=== PATIENT | female | born 1925 | race Caucasian/White ===

== ENCOUNTER 2016-11-13 16:48 | Inpatient (IN) | payer OTHER ==
[2016-11-13] MEDS ORDERED: TYLENOL PO PRN (16:54)
[2016-11-13] MEDS: NS 1,000 ML IV SCH (17:10)
[2016-11-13] MEDS: ZOFRAN IV PRN ×2 (17:22→21:56)
--- NOTE | 2016-11-13 18:45 | HISTORY AND PHYSICAL ---
CHIEF COMPLAINT: Nausea, vomiting, diarrhea. HISTORY OF PRESENT ILLNESS: An 89-year-old white female, lives in assisted living situation. Apparently overnight she began to vomit and had multiple episodes of vomiting. The facility there administered her some Pepto-Bismol which did not help. She called her son this morning and stated that she continued to have nausea and vomiting, was unable to take her medications and also began to develop diarrhea. She did not have any fever. The son transported her to the emergency room and she was admitted for observation due to age, overall frailty and inability to keep any fluids down. PAST MEDICAL HISTORY: 1. Remote history of TIA. 2. Remote history of rheumatoid arthritis. 3. Bilateral hip fractures with total hip arthroplasty repairs due to osteoporosis. 4. Ankle fracture due to osteoporosis. 5. Hypertension. 6. Urge incontinence. 7. General age related osteoporosis. ALLERGIES: HYDROXYCHLOROQUINE. FAMILY HISTORY: Noncontributory. SOCIAL HISTORY: I believe the patient lives at an assisted living facility or she has sitters. Her family is very attentive. REVIEW OF SYSTEMS: Patient denies any fever. She denies any chest pain, palpitations, shortness of breath. She denies any abdominal pain remarkably despite the nausea, vomiting and diarrhea. She has no urinary tract symptoms. She was seen in the office last week and was at baseline level of function. She is essentially wheelchair-bound due to multiple fractures and orthopedic procedures. PHYSICAL EXAMINATION: GENERAL: She is an elderly white female who is in no acute distress but is very anxious. HEENT EXAM: Oral mucosa is moderately dry but not parched. She has normal coloration. LUNGS: Clear to auscultation. CARDIOVASCULAR: Regular without appreciable murmur or gallop. ABDOMEN: Shows bowel sounds are present. She is nontender to palpation in all quadrants. There is no evidence of a surgical abdomen. EXTREMITIES: Trace edema in the lower extremities. There is slight skin tenting in the upper extremities. NEUROLOGIC: Cranial nerves are intact. The patient has a baseline slightly slurred speech which is not changed from years ago. LABORATORIES: Are pending. ASSESSMENT AND PLAN: 1. The patient will be admitted to the floor. We will gingerly administer IV fluids to keep her hydrated and she will have antiemetic therapy, anti-diarrheal therapy. We are hopeful that she can be observation admit and only be here for 2 days or less to get back on her feet. Depending on lab results, other supplements may be necessary. If any evidence of overt treatable infection surface we will address those if they come up. 2. As the patient regains her ability to eat and drink we will work her regular medications back in.
[2016-11-14 06:26] LABS: MANUAL DIFF NEEDED? NO
[2016-11-14 06:39] LABS: BASO% 0.2 % (0.0-0.8); EOS# 0.05 X1000 (0.0-0.7); EOS% 0.9 % (0.0-10.0); HEMATOCRIT 32.6 % (37.0-47.0); HEMOGLOBIN 10.3 g/dL (12.0-16.0); IMM GRAN# 0.02 X1000 (0.0-0.04); IMM GRAN% 0.3 % (0.0-0.5); LYMPH# 0.89 X1000 (1.2-3.4); LYMPH% 15.2 % (20.5-51.1); MCH 33.1 PG (27-31); MCHC 31.6 g/dL (33-37); MCV 104.8 FL (81-99); MONO# 0.81 X1000 (0.11-0.59); MONO% 13.9 % (1.7-9.3); MPV 10.1 FL (7.4-10.4); NEUT% 69.5 % (42.2-75.2); PLT 327 X1000 (130-400); RBC 3.11 XMIL (4.2-5.4)
[2016-11-14 06:52] LABS: ALBUMIN 3.2 g/dL (3.5-5.0); CALCIUM 7.5 mg/dL (8.8-10.2); POTASSIUM 4.3 mmol/L (3.5-5.1); TOTAL BILIRUBIN 0.34 mg/dL (0.20-1.00)
[2016-11-14] MEDS: NS 1,000 ML IV SCH (11:35)
[2016-11-14] MEDS ORDERED: MYCOSTATIN SUSP PO ONE (14:13)
--- NOTE | 2016-11-14 15:32 | PROGRESS NOTE ---
DATE: 11/14/2016 SUBJECTIVE: The patient had 1 other episode of vomiting last night. She feels better this morning and she states she is not nauseated. She has tried clear liquids for breakfast and did not like the broth, but did well otherwise. She has not had worsening of her diarrhea. She does have chronic intermittent diarrhea, but at the present time I thought she was acutely ill with more of her gastroenteritis. OBJECTIVE: Vital signs: Temperature 97.8, blood pressure 129/59, pulse 84, and respiratory rate 18. General: She is a well-developed, white female, in no acute distress. HEENT: She is black upon the top of her tongue which may be left over from vomiting Pepto-Bismol. She states that her tongue is sore. Lungs: Clear to auscultation. Cardiovascular: Regular. ASSESSMENT AND PLAN: We will continue to gingerly hydrate the patient. We will get her back on her home medications and hopefully advance her diet as tolerated. We are looking forward to discharge within 24-48 hours.
[2016-11-14] MEDS ORDERED: METAMUCIL PO SCH (21:00)
[2016-11-14] MEDS: MYCOSTATIN SUSP PO PRN (21:24)
[2016-11-14] MEDS: LOPRESSOR PO SCH (21:55)
[2016-11-14] MEDS: DITROPAN XL PO SCH (21:55)
[2016-11-14] MEDS: ASPIRIN PO SCH (21:55)
[2016-11-15] MEDS: NS 1,000 ML IV SCH (00:30)
[2016-11-15] MEDS: IMODIUM PO PRN (03:24)
[2016-11-15] MEDS: LOPRESSOR PO SCH ×2 (09:10→20:48)
[2016-11-15] MEDS: CITRACAL + D PO SCH ×2 (09:10→09:18)
[2016-11-15] MEDS: FOLIC ACID PO SCH (09:11)
[2016-11-15] MEDS: LASIX PO SCH (09:11)
[2016-11-15] MEDS: PRILOSEC PO SCH (09:11)
[2016-11-15] MEDS: MYCOSTATIN SUSP PO PRN (09:12)
[2016-11-15] MEDS: WELCHOL PO SCH ×2 (09:45→20:58)
--- NOTE | 2016-11-15 16:39 | PROGRESS NOTE ---
DATE: 11/15/2016 SUBJECTIVE: The patient states that she is worried that she has cancer. We discussed this at length. She had diarrhea the previous day and, although this is a chronic intermittent problem for her, both her and her son were concerned that this was an acute problem. We discussed treatment options for this as well. OBJECTIVE: Vital Signs: Temperature 97.8 degrees, blood pressure 128/50 pulse rate 74, respiratory rate 20. Lungs: Patient's lungs are clear. Cardiovascular: Regular. LABORATORIES: None. ASSESSMENT AND PLAN: 1. The patient's diet will be advanced today, and we will restart her usual home medications. I have instructed the patient and her family that she continue to progress. She would likely go home this afternoon or tomorrow morning. 2. I was informed by the case management that I needed to order physical therapy. The patient already has outpatient physical therapy scheduled for her home when she returns to assisted living. There was some mention that assisted living would not take her back unless we prove that she can walk.
[2016-11-15] MEDS: ASPIRIN PO SCH (20:48)
[2016-11-15] MEDS: DITROPAN XL PO SCH (20:48)
[2016-11-16] MEDS ORDERED: ZOFRAN ODT PO PRN (08:26)
[2016-11-16 08:58] VITALS: BP 153/57
[2016-11-16] MEDS: FOLIC ACID PO SCH (10:14)
[2016-11-16] MEDS: PRILOSEC PO SCH (10:15)
[2016-11-16] MEDS: LASIX PO SCH (10:15)
[2016-11-16] MEDS: LOPRESSOR PO SCH (10:15)
[2016-11-16] MEDS: WELCHOL PO SCH (10:16)
[2016-11-16] MEDS: IMODIUM PO PRN (10:21)
--- NOTE | 2016-11-16 11:49 | Diag Imaging Result Document ---
PROCEDURE NAME: CHEST-PORTABLE - 11/16/2016 AP PORTABLE CHEST: TIME: 1100 hours. FINDINGS: There is no evidence of acute cardiac or pulmonary disease. Compared to 04/14/2016, there has been no significant change in the appearance of the chest. IMPRESSION: No acute disease.
--- NOTE | 2016-11-17 09:38 | DISCHARGE SUMMARY ---
ADMISSION DATE: 11/15/2016 DISCHARGE DATE: 11/16/2016 DISCHARGE DIAGNOSES: 1. Acute gastroenteritis. 2. Chronic intermittent diarrhea. 3. History of osteoporosis. 4. History of transient ischemic attack. CONSULTATIONS: None. OPERATIVE PROCEDURES: None. HOSPITAL COURSE: This 89-year-old white female presented with nausea and vomiting for 2 days. She was settled down with some antiemetic therapy, as well as IV fluids. She tolerated this well. It took more than 24 hours for us to achieve good control. Her home medication regimen was restarted with the addition of Welchol for chronic diarrhea. She seemed to tolerate this well. We discussed return to home. In my attempts to discharge the patient, multiple road blocks were thrown up by the [facility] people. Despite the fact that she had come from [place] and had physical therapy already lined up, there was insistence by the certified social workers in health care and case resolution specialist that we get a physical therapy consult and that various other hoops were jumped through in order to get her discharged back to where she came from. They faxed over to my office a 6 page information sheet for me to fill out. I believe that this caused an unnecessary delay in her discharge and was not in the best interest of the patient. I put that fully on [facility]. Otherwise, the patient did not suffer any direct harm from this.
== END 2016-11-16 14:32 | DRG 392 ==
LOC: EDUNIT# → EDBD → ED 16:48 → SUPCPDRO 16:48 → EDIPHOLD 17:12 → 3N 19:52 → OBSVTOIN 11-15 13:47 → UNDODISIN 11-16 10:00
PROVIDERS: ADMIT Internal Medicine; ATTEND Internal Medicine
DX: K52.9 Noninfective gastroenteritis and colitis, unspecified (principal); M06.9 Rheumatoid arthritis, unspecified; I10 Essential (primary) hypertension; N39.41 Urge incontinence; M81.0 Age-related osteoporosis without current pathological fracture; Z99.3 Dependence on wheelchair; Z86.73 Personal history of transient ischemic attack (TIA), and cerebral infarction without residual deficits; Z79.82 Long term (current) use of aspirin; Z79.899 Other long term (current) drug therapy
CPT/HCPCS: 71010; 80053; 85025; 96374; J2405; J7030; 97530-GP

== ENCOUNTER 2017-03-01 05:59 | Inpatient (IN) ==
--- NOTE | 2017-03-01 06:32 | PROVIDER DOCUMENTATION ---
HPI-Neurological Disorder - General Chief Complaint: Stroke-Like Symptoms Stated Complaint: posible cva Time Seen by Provider: 03/01/17 06:12 Source: family, EMS Unable to obtain history due to:: altered Allergies/Adverse Reactions: Patient Allergies Allergy/AdvReac Type Severity Reaction Status Date / Time hydroxychloroquine sulfate * Allergy Mild RASH Ver[facility] 03/01/17 06:35 [facility] Home Medications: Home Medication List Medication Instructions Recorded Confirmed Last Taken Type Aspirin 81 mg PO QHS 02/02/13 03/01/17 02/28/17 History Omeprazole [Prilosec] 40 mg PO QAM 02/02/13 03/01/17 02/28/17 History Metoprolol [Lopressor] 25 mg PO Q12HR #0 tablet 02/11/13 03/01/17 02/28/17 Rx Folic Acid 1 mg PO QAM 03/18/13 03/01/17 02/28/17 History Furosemide 10 mg PO QAM 04/13/16 03/01/17 02/28/17 History Oxybutynin E.r. [Ditropan Xl] 10 mg PO QHS 04/13/16 03/01/17 02/28/17 History Calcium Citrate/Vitamin D 1 each PO DAILY #0 tablet 04/18/16 03/01/17 02/28/17 Rx [Citracal + D] Acetaminophen [Tylenol] 650 mg PO Q6H PRN PRN #0 tablet 11/16/16 03/01/17 Rx Colesevelam [Welchol] 625 mg PO BID #60 tablet 11/16/16 03/01/17 02/28/17 Rx Loperamide [Imodium] 2 mg PO PRN PRN #0 capsule 11/16/16 03/01/17 02/28/17 Rx Ondansetron Odt [Zofran Odt] 4 mg PO Q4-6H PRN PRN #10 tablet 11/16/16 03/01/17 02/28/17 Rx Nystatin Susp [Mycostatin Susp] 5 ml PO Q6-8H PRN PRN 03/01/17 03/01/17 Unknown History Ondansetron [Zofran Odt] 4 mg PO Q4-6H PRN PRN 03/01/17 03/01/17 Unknown History - History of Present Illness-Neuro Nature of Presenting Problem: 89 [facility] [place] resident brought to ER due to obvious aphasia, vomiting and confusion. She has had multiple TIA,s;' over the past 2 years and recently had extensive studies including MRI , cartid US, EKG, with no reversible disease idenified. CT here in the ER with only chronic changes of the elderly. Onset/Duration: reports: 4-6 hours ago Timing: reports: still present, changing over time, getting worse Context: reports: impaired speech Approximate time patient was last seen normal?: 02:00 Character of Altered Mental Status: reports: confused, decreased responsiveness Any recent trauma/injury?: reports: none Character of Deficits: reports: altered sensation New weakness or altered sensation location:: reports: none Cognitive Baseline: alert, oriented x3 Gait Baseline: uses a walker Review of Systems - Adult - REVIEW OF SYSTEMS - ADULT Constitutional: reports: see HPI Eyes: reports: no symptoms reported Ears, Nose, Mouth & Throat: reports: hearing loss Cardiovascular: reports: no symptoms reported Respiratory: reports: no symptoms reported Genitourinary: reports: no symptoms reported Musculoskeletal: reports: other (multiple fractures including bilateral hip replacements) Neurological: reports: see HPI Psychiatric: reports: no symptoms reported Past History - Adult - PAST MEDICAL HISTORY-ADULT Review of Records: reports: Old Records Reviewed, Nursing Assessment Review Musculoskeletal: reports: other fractures, orthopedic injury, osteoporosis - PRIOR SURGERIES/PROCEDURES Surgical/Procedure History: reports: orthopedic (extremity), joint replacement - IMMUNIZATION STATUS Childhood Immunizations: See Nurse Assessment Flu Vaccine: See Nurse Assessment - SOCIAL HISTORY Smoking: denies Substance Use: none/never Alcohol Use Frequency: never Living Situation: care facility Physical Exam- Neurological - Physical Exam-Neuro Initial Vital Signs Reviewed: Yes General Appearance: mild distress Eye Exam: bilateral eye: normal inspection HENMT: normocephalic/atraumatic, moist mucous membranes Head Injury: no evidence of injury Neck: non-tender, full range of motion, supple Respiratory: chest non-tender, lungs clear, normal breath sounds, no pleuratic chest pain, no respiratory distress Cardiovascular: normal peripheral pulses, regular rate, rhythm, no edema, no gallop, no JVD, no murmur Abdominal Exam: normal bowel sounds, non tender (easily palpable mass llq, probably stool) Progress - PLAN OF CARE/RESULTS Progress/Plan/Lab Results: Vital Signs - 8 hr 03/01/17 06:10 03/01/17 07:28 Temperature 98.3 F Pulse Rate 90 80 Respiratory Rate 24 24 Blood Pressure 214/101 209/81 O2 Sat by Pulse Oximetry 96 98 Laboratory Results - last 24 hr 03/01/17 03/01/17 03/01/17 06:20 07:06 07:06 WBC 9.89 RBC 3.56 L Hgb 11.6 L Hct 35.9 L MCV 100.8 H MCH 32.6 H MCHC 32.3 L RDW Std Deviation 17.6 H Plt Count 389 MPV 9.9 Immature Gran % (Auto) 1.0 H Neut % (Auto) 76.5 H Lymph % (Auto) 14.7 L Kay % (Auto) 5.7 Eos % (Auto) 1.8 Baso % (Auto) 0.3 Immature Gran # (Auto) 0.10 H Neut # (Auto) 7.57 H Lymph # (Auto) 1.45 Kay # (Auto) 0.56 Eos # (Auto) 0.18 Baso # (Auto) 0.03 Sodium 144 Potassium 4.1 Chloride 103 Carbon Dioxide 27 Anion Gap 14 BUN 7 L Creatinine 0.6 Estimated GFR/1.73 m2 > 60 BUN/Creatinine Ratio 12 Glucose 95 POC Glucose 75 Calculated Osmolality 285 Calcium 8.8 Total Bilirubin 0.53 AST 18 ALT 9 L Alkaline Phosphatase 80 Total Protein 6.8 Albumin 3.9 Globulin 2.9 Albumin/Globulin Ratio 1.3 Urine Source Urine Color Urine Turbidity Urine pH Ur Specific [place] Urine Protein Ur Glucose (Stick) Ur Ketones (Stick) Urine Blood Urine Nitrite Urine Bilirubin Urobilinogen Dipstick Urine Leukocytes Urine WBC (Auto) Urine RBC (Auto) U Epithel Cells (Auto) Urine Bacteria (Auto) 03/01/17 07:06 WBC RBC Hgb Hct MCV MCH MCHC RDW Std Deviation Plt Count MPV Immature Gran % (Auto) Neut % (Auto) Lymph % (Auto) Kay % (Auto) Eos % (Auto) Baso % (Auto) Immature Gran # (Auto) Neut # (Auto) Lymph # (Auto) Kay # (Auto) Eos # (Auto) Baso # (Auto) Sodium Potassium Chloride Carbon Dioxide Anion Gap BUN Creatinine Estimated GFR/1.73 m2 BUN/Creatinine Ratio Glucose POC Glucose Calculated Osmolality Calcium Total Bilirubin AST ALT Alkaline Phosphatase Total Protein Albumin Globulin Albumin/Globulin Ratio Urine Source CATH Urine Color STRAW Urine Turbidity CLEAR Urine pH 8.0 Ur Specific [place] 1.008 Urine Protein NEGATIVE Ur Glucose (Stick) NEGATIVE Ur Ketones (Stick) NEGATIVE Urine Blood NEGATIVE Urine Nitrite NEGATIVE Urine Bilirubin NEGATIVE Urobilinogen Dipstick NORMAL Urine Leukocytes NEGATIVE Urine WBC (Auto) <10 Urine RBC (Auto) <10 U Epithel Cells (Auto) <10 Urine Bacteria (Auto) NEGATIVE Orders Category Date Time Status FLAT/UPRIGHT ABD/1 VIEW CHEST [RAD] Stat Exams 03/01/17 06:34 Completed HEAD W/O CONTRAST [CT] Stat Exams 03/01/17 06:00 Taken CBC WITH ELECTRONIC DIFF [HEME] Stat Lab 03/01/17 07:06 Completed COMPREHENSIVE METABOLIC PANEL [CHEM] Stat Lab 03/01/17 07:06 Completed UA NIMS W/REFLEX CULT [URINALYSIS] Stat Lab 03/01/17 07:06 Completed 0.9% Sodium Chloride Inj [Ns] 1,000 ml Med 03/01/17 06:35 Active IV 50 mls/hr Ondansetron [Zofran] Med 03/01/17 06:36 Discontinued 4 mg IV NOW ONE EKG [EKG] Stat Ther 03/01/17 06:02 Draft Result Diagrams: 03/01/17 07:06 03/01/17 07:06 - XRAY 1 XRAY Study: Chest, Abdomen, Pelvis (No acute dz) Impression: Normal Departure - Departure Time of Disposition Decision: 08:43 DIAGNOSIS: CVA (cerebral vascular accident) Qualifiers: CVA mechanism: thrombosis Precerebral and cerebral artery: unspecified cerebral artery Qualified Code(s): I63.30 - Cerebral infarction due to thrombosis of unspecified cerebral artery Disposition: ADMITTED INPATIENT 09 Certified Medical Emergency: Emergent Condition: Poor Referrals and Follow-Ups: Tulio Rucker MD [Primary Care Provider] - - Critical Care Note This patient required my direct personal management.: Yes
[2017-03-01] MEDS ORDERED: ZOFRAN IV ONE (06:36)
[2017-03-01] MEDS: NS 1,000 ML IV SCH (06:50)
[2017-03-01 07:08] LABS: MANUAL DIFF NEEDED? NO; URINE CULTURE NEEDED? NO; URINE MICRO REVIEW NEEDED? NO; URINE SOURCE CATH
[2017-03-01 07:15] LABS: BASO% 0.3 % (0.0-0.8); EOS# 0.18 X1000 (0.0-0.7); EOS% 1.8 % (0.0-10.0); HEMATOCRIT 35.9 % (37.0-47.0); HEMOGLOBIN 11.6 g/dL (12.0-16.0); LYMPH# 1.45 X1000 (1.2-3.4); LYMPH% 14.7 % (20.5-51.1); MCH 32.6 PG (27-31); MCHC 32.3 g/dL (33-37); MCV 100.8 FL (81-99); MONO# 0.56 X1000 (0.11-0.59); MONO% 5.7 % (1.7-9.3); MPV 9.9 FL (7.4-10.4); NEUT% 76.5 % (42.2-75.2); PLT 389 X1000 (130-400); RBC 3.56 XMIL (4.2-5.4)
[2017-03-01 07:17] LABS: BILIRUBIN URINE NEGATIVE (NEGATIVE); BLOOD URINE NEGATIVE (NEGATIVE); COLOR STRAW; GLUCOSE URINE NEGATIVE (NEGATIVE); LEUKOCYTES URINE NEGATIVE (NEGATIVE); NITRITE URINE NEGATIVE (NEGATIVE); PROTEIN URINE NEGATIVE (NEGATIVE); SP GRAVITY URINE 1.008; TURBIDITY URINE CLEAR (CLEAR); UROBILINOGEN URINE NORMAL (NORMAL)
[2017-03-01 07:18] LABS: UR EPITHELIAL CELLS <10 /HPF (<10); URINE BACTERIA NEGATIVE /HPF; URINE RBC <10 /HPF (<10); URINE WBC <10 /HPF (<10)
--- NOTE | 2017-03-01 07:32 | EKG Report ---
Test Performed on : 03/01/2017 06:20:29 AM Test Reason : cva s/s Blood Pressure : / mmHG Vent. Rate : 091 BPM Atrial Rate : 091 BPM P-R Int : 192 ms QRS Dur : 078 ms QT Int : 354 ms P-R-T Axes : 035 -19 -03 degrees QTc Int : 435 ms Normal sinus rhythm. Voltage criteria for left ventricular hypertrophy Inferior infarct , age undetermined Abnormal ECG When compared with ECG of 03-FEB-2013 16:21, Inverted T waves have replaced nonspecific T wave abnormality in Inferior leads T wave inversion less evident in Lateral leads Unconfirmed Result
[2017-03-01 07:39] LABS: AGAP 14; ALBUMIN 3.9 g/dL (3.5-5.0); ALKALINE PHOSPHATASE 80 U/L (32-104); BUN 7 mg/dL (8-22); CALCIUM 8.8 mg/dL (8.8-10.2); CHLORIDE 103 mmol/L (98-107); COSMO 285; GOT 18 U/L (10-30); GPT 9 U/L (10-36); POTASSIUM 4.1 mmol/L (3.5-5.1); SODIUM 144 mmol/L (136-145); TCO2 27 mmol/L (25-35); TOTAL BILIRUBIN 0.53 mg/dL (0.20-1.00); TOTAL PROTEIN 6.8 g/dL (6.3-8.3)
--- NOTE | 2017-03-01 08:13 | Diag Imaging Result Document ---
PROCEDURE NAME: FLAT/UPRIGHT ABD/1 VIEW CHEST - 03/01/2017 FLAT AND UPRIGHT AND CHEST, THREE VIEWS: COMPARISON: Compared to 11/16/2016. FINDINGS: The lungs are well expanded. The right hemidiaphragm is elevated. No pneumonia. No free air beneath the diaphragm. No bowel obstruction. No organomegaly. There are degenerative spine changes and there has been prior orthopedic replacement of each hip. There is a large pelvic calcification consistent with a uterine fibroid. There are surgical clips in the right upper quadrant from cholecystectomy. IMPRESSION: No acute abnormality.
[2017-03-01] MEDS ORDERED: TORADOL IV PRN (09:28)
[2017-03-01] MEDS ORDERED: TYLENOL PO PRN (09:28)
[2017-03-01] MEDS ORDERED: ZOFRAN IV PRN (09:28)
--- NOTE | 2017-03-02 00:43 | HISTORY AND PHYSICAL ---
CHIEF COMPLAINT: Inability to talk. HISTORY OF PRESENT ILLNESS: This 89-year-old white female was living in an assisted living situation. The patient's son got a call this morning around 5:30 in the morning saying that she could not talk. Apparently, she had been having difficulty with making words since around 2 a.m. The patient was brought to the emergency room and found to have a severe aphasia, with no other focal neurological deficits. CT scan was normal. She was admitted for likely CVA. It is of note that the patient has suffered from multiple "TIAs" for years. Over the last year and a half or so, she has had a gradual decline in her speech function, to where she had normal mentation and word formation, but it just seemed like her vocal coordination was off. Today is somewhat different, in that she seems to be trying to make words, but it basically comes out as nonsense. She does not actually make real words. PAST MEDICAL HISTORY: 1. History of TIAs. She had a workup including MRIs of the brain in January, with no significant acute findings. This included an MRI. 2. Remote history of rheumatoid arthritis. Only now at age 89 does she show some signs of ulnar deviation. 3. History of multiple falls with bilateral hip fracture, total hip arthroplasty, and ankle fracture as well. 4. Osteoporosis. 5. Hypertension. 6. Urge incontinence. ALLERGIES: Hydroxychloroquine. FAMILY HISTORY: Noncontributory. SOCIAL HISTORY: The patient lives in assisted living. She has the full support of her son and daughter. She had sitters daily. Her family is very attentive. REVIEW OF SYSTEMS: The patient's family stated that she was in her usual state of health up until today. She had been eating and drinking well. Her strength has been waning of late, and she spends more time in the wheelchair. She does not have any problems with urination, no problems with bowel movements. She denied any shortness of breath, coughing, wheezing, chest pain, or palpitations. PHYSICAL EXAMINATION: GENERAL: She is a well-developed white female, in no acute distress NEUROLOGIC: She does not have any cranial nerve deficits, but she is unable to make words that make any sense at the time of my examination. She is very frustrated with this. The patient has a mild and very difficult to quantify deficit in the gatekeeper of her right hand, even though her arm and wrist strength appear to be normal. She simply does not seem to be able to gatekeeper, but she can hook her fingers over your's. Left hand appears normal. She is able to move both legs spontaneously and against resistance. LABORATORY STUDIES: Hematocrit 35.9, with a slightly high MCV, slightly high RDW. Serum electrolytes are normal. CT scan was negative for acute findings. Also, in January 2017, she had a negative carotid Doppler study, although the vessels were labeled as tortuous. She had a negative MRA and MRI. ASSESSMENT AND PLAN: 1. The patient will be admitted to the hospital. We will do a swallowing screen and try and feed her. We will maintain and try and improve any other risk factors for further cerebrovascular accident. It is highly likely that she will be unable to return to assisted living, and may require mcc. I discussed with the patient's son the likelihood of a mcc need, the need for a no code blue level 1, and the possibility of hospice at discharge as well. I did not discuss this with the patient, even though I think she is relatively competent to make those decisions. I do believe her children have durable power of trial attorney already established. 2. The patient's other home medications remain as they were previously. I do not see a need to redo all the studies done just over a month ago, and I do not think neurology would be able to add anything to our treatment. There is still a possibility that she has an extended reversible ischemic neurological deficit, and we will monitor her for any progress in this regard. cc: Tulio Rucker MD
--- NOTE | 2017-03-02 07:35 | Diag Imaging Result Document ---
PROCEDURE NAME: HEAD W/O CONTRAST - 03/01/2017 CT BRAIN WITHOUT CONTRAST: TECHNIQUE: Dose-reduction protocol. FINDINGS: No parenchymal hemorrhage. No epidural or subdural hematoma. No subarachnoid hemorrhage. There are chronic microvascular ischemic changes. Old right lacune near the internal capsule anteriorly. No mass identified on this noncontrasted exam. No hydrocephalus. No sinus opacification. IMPRESSION: 1. No hemorrhage. 2. 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 A preliminary report was given at 6:18 a.m.
--- NOTE | 2017-03-02 10:05 | PROGRESS NOTE ---
DATE: 03/02/2017 SUBJECTIVE: The patient is able to talk today. She wants something to eat. She has not had a swallowing screen yet per speech therapy. OBJECTIVE: Vital Signs: 97.8, 191/69, 82, 18, 90% on room air. Physical Examination: Neurologic: The patient is able to phonate and to make coherent sentences now. Her overall pronunciation and movement appear to be slower than prior to yesterday's event but have generally returned to normal. She seems to have to concentrate quite a bit in order to speak coherently. Lungs: Clear. Cardiovascular: Regular. ASSESSMENT AND PLAN: 1. We will have a speech therapy and physical therapy consultation today. 2. We will hold her nothing per oral except medications until speech therapy has cleared her. 3. We spoke about long-term care with the patient's family. If her speech has returned and she is mobile enough, they would like to return her to assisted living long enough to try and secure a more permanent setting for her to live. They are thinking along the lines of [facility] for [facility] care and I think this is appropriate. 4. Do not resuscitate level 1. cc: Tulio Rucker MD
[2017-03-02] MEDS: WELCHOL PO SCH ×2 (13:49→21:03)
[2017-03-02] MEDS: PRILOSEC PO SCH (13:49)
[2017-03-02] MEDS: LOPRESSOR PO SCH ×2 (13:49→21:04)
[2017-03-02] MEDS: NS 1,000 ML IV SCH (13:49)
[2017-03-02] MEDS ORDERED: ASPIRIN PO SCH (21:00)
[2017-03-02] MEDS: DITROPAN XL PO SCH (21:03)
[2017-03-03] MEDS ORDERED: TYLENOL PO PRN (08:16)
[2017-03-03] MEDS ORDERED: SALINE LOCK IV FLUID XX ONE (08:18)
[2017-03-03] MEDS: LASIX PO SCH (09:53)
[2017-03-03] MEDS: FOLIC ACID PO SCH (09:55)
[2017-03-03] MEDS: LOPRESSOR PO SCH ×2 (09:55→19:59)
[2017-03-03] MEDS: CITRACAL + D PO SCH (09:55)
[2017-03-03] MEDS: WELCHOL PO SCH ×2 (09:55→19:59)
[2017-03-03] MEDS: PRILOSEC PO SCH (09:55)
[2017-03-03] MEDS: PLAVIX PO SCH (09:55)
--- NOTE | 2017-03-03 11:04 | PROGRESS NOTE ---
DATE: 03/03/2017 SUBJECTIVE: The patient's son states that yesterday she was speaking in full sentences and was at or near baseline ability to speak. When he sat up on the side of the bed, she got nauseated and vomited 1 time. She was able to eat later that day and seemed to have dexterity in her right hand, which was not present at admission. OBJECTIVE: Vital Signs: Temperature 97.8, pulse 70, respirations 18, blood pressure 181/59. General: She is a well-developed, white female, who is asleep in the bed. She was easily aroused. Neurologic: The patient is able to speak in full sentences and is at or near her baseline level of communication. The hand copy center associate in her right hand is improved from the time of admission. There are no other focal neurological deficits. Cardiovascular: Regular. Lungs: Clear to auscultation. Extremities: Trace to 1+ pitting edema in lower extremities. ASSESSMENT/PLAN: 1. I plan to discontinue the patient's IV and Gonzalez catheter. 2. The patient passed a swallowing screen and was able to eat and has regained her right hand dexterity. 3. There is an acute physical therapy evaluation today and we will see if she is in need of or would benefit from rehab. 4. The biggest problem that she faces is placement. I would like to have [facility] re- evaluate her and see if she is still a candidate for assisted living. If not we will likely opt for rehab and then again later re-evaluate her for retirement facility versus assisted living. I spoke at length with the patient's son in this regard and he was in agreement. cc: Tulio Rucker MD
[2017-03-03] MEDS: DITROPAN XL PO SCH (19:59)
[2017-03-04] MEDS: LOPRESSOR PO SCH ×2 (08:58→20:30)
[2017-03-04] MEDS: FOLIC ACID PO SCH (08:58)
[2017-03-04] MEDS: LASIX PO SCH (08:58)
[2017-03-04] MEDS: PRILOSEC PO SCH (08:58)
[2017-03-04] MEDS: CITRACAL + D PO SCH (08:58)
[2017-03-04] MEDS: PLAVIX PO SCH (08:58)
[2017-03-04] MEDS: WELCHOL PO SCH ×2 (08:58→20:30)
--- NOTE | 2017-03-04 15:07 | PROGRESS NOTE ---
DATE: 03/04/2017 Ms. Shook was frustrated that she was still in the bed but she seemed to be comfortable. No trouble breathing. She remained afebrile.Vital signs: Temperature 97.5 degrees, pulse 70, respirations 20, blood pressure 160/65. HEENT: Pupils are equal, round. Lungs: Are clear in all lung diggs. Cardiovascular: Regular rhythm and rate without murmur or S3. Abdomen: Soft. Skin: Warm and dry. Urine output was almost 4 L. LAB: White count 9890, hematocrit 35, platelet count 389,000. Sodium 144, potassium 4.1, chloride 103, BUN 7 and creatinine 6 and this was back on the . ASSESSMENT AND PLAN: Patient's IV and Gonzalez catheter are discontinued. Passed swallowing screen and was able to eat so encourage p.o. intake. Continue physical therapy. They wanted [facility] to re-evaluate to see if she is a candidate for assisted living I think on Monday. I looked over her orders. I do not see anything to change. She is getting Toradol 15 mg IV q.4 hours p.r.n. pain but that has been discontinued. She is on oxybutynin 10 mg at bedtime. Prilosec 40 mg q.a.m. Lopressor 25 mg q.12 hours. Lasix 10 mg q.a.m. Folic acid 1 mg q.a.m. Welchol 625 mg b.i.d. Plavix 75 mg a day. Calcium citrate 1 a day. cc: MD Tulio Guan MD
[2017-03-04] MEDS: DITROPAN XL PO SCH (20:30)
[2017-03-05] MEDS: PLAVIX PO SCH (08:46)
[2017-03-05] MEDS: LOPRESSOR PO SCH ×2 (08:46→20:54)
[2017-03-05] MEDS: WELCHOL PO SCH ×2 (08:46→20:54)
[2017-03-05] MEDS: FOLIC ACID PO SCH (08:46)
[2017-03-05] MEDS: LASIX PO SCH (08:46)
[2017-03-05] MEDS: CITRACAL + D PO SCH (08:46)
[2017-03-05] MEDS: PRILOSEC PO SCH (08:46)
--- NOTE | 2017-03-05 15:34 | PROGRESS NOTE ---
DATE: 03/05/2017 SUBJECTIVE: She is awake, pleasant. No complaints. She squeeze my hand, moving both feet. Extraocular motions appear intact. No facial asymmetry. No complaints of pain.Vital signs: Temperature 98.7 degrees, pulse 74, respirations 17. Blood pressure 160/53. Lungs: Are clear in all lung diggs. Cardiovascular: Regular rhythm and rate without murmur or S3. Abdomen: Soft. Skin: Warm and dry. LABORATORY: White count 9890, hematocrit 35, platelet count 389,000. Sodium 144, potassium 4.1, chloride 103, bicarb 27, BUN 7, creatinine 0.6. AST and ALT within normal limits. ASSESSMENT AND PLAN: Gonzalez catheter is out. She is eating, swallowing well by report. Continue physical therapy. Waiting for placement. I think Dr. Rucker has arranged for [facility] to come out and re-evaluate to see if she could go back there. Review of her orders, I do not see any change at this point this. cc: MD Tulio Guan MD
[2017-03-05] MEDS: DITROPAN XL PO SCH (20:54)
[2017-03-06 07:51] VITALS: BP 150/57
[2017-03-06] MEDS ORDERED: METHOTREXATE PO SCH (08:15)
[2017-03-06] MEDS: LASIX PO SCH (08:26)
[2017-03-06] MEDS: WELCHOL PO SCH (08:26)
[2017-03-06] MEDS: PRILOSEC PO SCH (08:26)
[2017-03-06] MEDS: LOPRESSOR PO SCH (08:26)
[2017-03-06] MEDS: FOLIC ACID PO SCH (08:27)
[2017-03-06] MEDS: PLAVIX PO SCH (08:27)
[2017-03-06] MEDS: CITRACAL + D PO SCH (08:27)
--- NOTE | 2017-03-06 09:35 | PROGRESS NOTE ---
DATE: 03/06/2017 SUBJECTIVE: The patient has no new complaints. Her speech is at or approaching baseline. She states that she is sore from lying in the bed. She asked that we reinstituted her weekly methotrexate dose. OBJECTIVE: Vital Signs: 98.0, 79, 18, 150/57. General: She is a well-developed, white female, in no acute distress. She is alert, oriented, conversive, and at baseline level of speech. Lungs: Clear. Cardiovascular: Regular. Extremities: Show no edema. ASSESSMENT AND PLAN: 1. Gonzalez catheter discontinuation and telemetry discontinuation. 2. We are seeking a rehabilitation bed at [facility]. 3. We will continue with speech and physical therapy. 4. No changes in her other medications are projected. 5. The patient will be eligible to discharge to rehabilitation as soon as a bed becomes available. cc: Tulio Rucker MD
--- NOTE | 2017-03-06 13:35 | DISCHARGE SUMMARY ---
ADMISSION DATE: 03/01/2017 DISCHARGE DATE: DISCHARGE DIAGNOSES: 1. Transient ischemic attack with no residual deficits. 2. Hypertension. 3. Rheumatoid arthritis. HOSPITAL COURSE: This 89-year-old white female who was suffered TIAs in the past presented with several hours of inability to speak. Over the course of an unknown amount of time overnight, she had not been able to speak. She was then brought to the hospital and I witnessed her not being able to put sentences together. She slowly recovered over the next several hours and returned to her baseline. We were entertaining the possibility of intermediate and there was a delay in getting arrangements made. Over that time course, she seem to improve but continued to have back pain and her mobility had suffered even more than would usually be associated with a chronic decline. We consulted physical therapy but clearly she needed more help than she had in the past. We decided to go with her rehab stay and try and get her a little bit more mobile. Depending on where she progresses in the next 2-3 weeks at rehab, she will either return to assisted living or to intermediate facility. I believe that the assisted living facility is already involved in evaluating her both now and after her rehab stay. There have been no changes in medications according to the electronic chart. She is discharged in good condition. The family has been spoken to multiple times and are aware and in agreement with this plan. cc: Tulio Rucker MD
== END 2017-03-06 16:19 ==
LOC: ED 05:59 → EDIPHOLD 10:38 → 3N 14:46
PROVIDERS: ADMIT Internal Medicine; ATTEND Internal Medicine